=== PATIENT | male | born 1940 | race Caucasian/White ===

== ENCOUNTER 2024-09-10 07:25 | Inpatient (IN) | payer MEDICARE ==
[~2024-09-10] VITALS: Ht 170.2 cm; Wt 72.6 kg
[2024-09-10] MEDS ORDERED: Mounjaro SQ (07:45)
[2024-09-10] MEDS ORDERED: HYDR50TA62 PO (07:45)
[2024-09-10] MEDS ORDERED: MORPHINE SULFATE 2 MG/1 ML DISP.SYRIN ONE (08:02)
[2024-09-10] MEDS ORDERED: METOCLOPRAMIDE HCL 10 MG/2 ML VIAL ONE (08:02)
[2024-09-10 08:07] LABS: PLATELET COUNT (AUTO) 422 K/uL (152-348); RED BLOOD CELL COUNT(AUTO) 3.58 MIL/uL (4.06-5.63); RED CELL DISTRIBUTION WIDTH 14.0 % (12.1-16.2); WHITE BLOOD COUNT (AUTO) 9.6 K/uL (3.6-10.2)
[2024-09-10] MEDS: METOCLOPRAMIDE HCL 10 MG/2 ML VIAL IV ONE (08:08)
[2024-09-10] MEDS: IV NS 1000 ML 1,000 ML IV ONE ×2 (08:08→09:52)
[2024-09-10] MEDS: MORPHINE SULFATE 2 MG/1 ML DISP.SYRIN IV ONE (08:09)
[2024-09-10 08:15] LABS: CREATININE 0.7 mg/dL (0.6-1.3); SODIUM SERUM 140 mmol/L (136-145); UREA NITROGEN, BLOOD 20 mg/dL (7-18)
[2024-09-10 08:26] LABS: ASPARTATE AMINOTRANSFERASE 81 U/L (15-37); TOTAL PROTEIN, SERUM 7.9 g/dL (6.4-8.2)
[2024-09-10] MEDS: PIPERACILLIN SODIUM/TAZOBACTAM 3.375 G in IV DEXTROSE 5% 50 ML IV ONE (08:35)
[2024-09-10] MEDS ORDERED: IV NORMAL SALINE 250 ML IV ONE (08:45)
[2024-09-10] MEDS ORDERED: SWABABLE VALVE TRANSFER SET EA MC ONE (08:45)
[2024-09-10] MEDS ORDERED: IOHEXOL 300MG/ML 100 ML INFUS..BTL ONE (08:45)
[2024-09-10 08:46] LABS: LACTIC ACID 2.8 mmol/L (0.4-2.0)
[2024-09-10] MEDS ORDERED: PIPERACILLIN/TAZOBACTAM/D5W 50 ML IV ONE ×2 (08:52→14:08)
[2024-09-10 09:45] LABS: *BILIRUBIN,URIN NEGATIVE (NEGATIVE); *BLOOD, URINE 2+ (NEGATIVE); *CLARITY,URINE CLEAR (CLEAR); *COLOR,URINE YELLOW (YELLOW); *KETONES,URINE TRACE (NEGATIVE); *PROTEIN,URINE 1+ (NEGATIVE); *UROBILINOGEN,URINE 0.2 E.U./dl (NORMAL); LEUKOCYTE ESTERASE ,URINE NEGATIVE (NEGATIVE); NITRITE, URINE NEGATIVE (NEGATIVE); UGLUCOSE NEGATIVE (NEGATIVE)
[2024-09-10] MEDS: IV NORMAL SALINE 1000 ML BAG IV ONE (09:47)
[2024-09-10] MEDS ORDERED: MORPHINE SULFATE 4 MG/1 ML DISP.SYRIN ONE (09:55)
[2024-09-10] MEDS ORDERED: HYDR500C2 PO (10:12)
[2024-09-10] MEDS: MORPHINE SULFATE 4 MG/1 ML DISP.SYRIN IV ONE (10:29)
[2024-09-10] MEDS ORDERED: REMEDY ESSENTIAL ZINC PASTE 113 GM TP PRN (11:15)
[2024-09-10] MEDS ORDERED: MORPHINE SULFATE 4 MG/1 ML DISP.SYRIN IV PRN (11:15)
[2024-09-10] MEDS ORDERED: ONDANSETRON 4 MG/2 ML VIAL IV PRN ×2 (11:15)
[2024-09-10] MEDS ORDERED: TEMAZEPAM 15 MG CAPSULE PO PRN (11:15)
[2024-09-10] MEDS ORDERED: ROSU40TA PO (12:00)
[2024-09-10] MEDS ORDERED: EZET10TA15 PO (12:00)
[2024-09-10] MEDS ORDERED: PIPERACILLIN SODIUM/TAZOBACTAM 3.375 G in IV DEXTROSE 5% 50 ML IV SCH (12:00)
[2024-09-10] MEDS ORDERED: SERT25TA PO (12:00)
[2024-09-10] MEDS: PIPERACILLIN SODIUM/TAZOBACTAM 3.375 G in IV DEXTROSE 5% 100 ML IV SCH (14:23)
[2024-09-10 19:15] VITALS: BP 103/53; TEMP 99.2; O2SAT 97
[2024-09-11 05:34] VITALS: BP 111/60; TEMP 97.8; O2SAT 96
[2024-09-11 06:39] LABS: PLATELET COUNT (AUTO) 362 K/uL (152-348); RED BLOOD CELL COUNT(AUTO) 3.05 MIL/uL (4.06-5.63); RED CELL DISTRIBUTION WIDTH 14.1 % (12.1-16.2); WHITE BLOOD COUNT (AUTO) 8.9 K/uL (3.6-10.2)
[2024-09-11 06:59] LABS: ASPARTATE AMINOTRANSFERASE 30 U/L (15-37); CREATININE 0.5 mg/dL (0.6-1.3); SODIUM SERUM 140 mmol/L (136-145); TOTAL PROTEIN, SERUM 5.7 g/dL (6.4-8.2); UREA NITROGEN, BLOOD 17 mg/dL (7-18)
[2024-09-11] MEDS: HYDROXYUREA 500 MG CAPSULE PO SCH (08:10)
[2024-09-11] MEDS: ENOXAPARIN SODIUM 40 MG/0.4 ML DISP.SYRIN SQ SCH (08:11)
[2024-09-11] MEDS: PANTOPRAZOLE SODIUM 40 MG VIAL IV SCH (08:23)
[2024-09-11 08:34] LABS: ERYTHROCYTE SEDIMENTATION RATE 24 MM/HR (0-15)
[2024-09-11] MEDS ORDERED: SULFAMETH/TRIMETH 800/160 MG TABLET PO SCH (09:30)
[2024-09-11] MEDS: DOXYCYCLINE HYCLATE 100 MG TABLET PO SCH (09:51)
[2024-09-11 11:07] VITALS: BP 116/60; TEMP 97.7; O2SAT 100
[2024-09-11 16:04] VITALS: BP 120/62; TEMP 97.4; O2SAT 93
[2024-09-11 19:15] VITALS: BP 145/70; TEMP 97.6; O2SAT 99
[2024-09-12 05:40] VITALS: BP 123/57; TEMP 98; O2SAT 99
[2024-09-12 07:20] LABS: PLATELET COUNT (AUTO) 344 K/uL (152-348); RED BLOOD CELL COUNT(AUTO) 3.00 MIL/uL (4.06-5.63); RED CELL DISTRIBUTION WIDTH 14.1 % (12.1-16.2); WHITE BLOOD COUNT (AUTO) 5.7 K/uL (3.6-10.2)
[2024-09-12 07:24] LABS: CREATININE 0.6 mg/dL (0.6-1.3); SODIUM SERUM 138 mmol/L (136-145); UREA NITROGEN, BLOOD 13 mg/dL (7-18)
[2024-09-12 12:00] VITALS: BP 115/63; TEMP 97.6; O2SAT 97
[2024-09-12 16:04] VITALS: BP 120/62; TEMP 98.6; O2SAT 100
[2024-09-12 19:00] VITALS: BP 101/57; TEMP 97.6; O2SAT 98
[2024-09-13 04:00] VITALS: BP 121/68; TEMP 97.6; O2SAT 99
[2024-09-13] MEDS: PANTOPRAZOLE SODIUM 40 MG TABLET.DR PO SCH (06:28)
[2024-09-13 07:43] VITALS: BP 123/65; TEMP 97.5; O2SAT 98
== END 2024-09-13 11:55 | disposition home or self-care (01) | DRG 392 ==
LOC: ER 07:25 → TELE3 11:15 → MEDSURG3 16:20
PROVIDERS: ADMIT Registered Nurse Psychiatric/Mental Health; ATTEND Registered Nurse Psychiatric/Mental Health
DX: K57.32 Diverticulitis of large intestine without perforation or abscess without bleeding (principal); E87.20 Acidosis, unspecified; E44.0 Moderate protein-calorie malnutrition; L03.115 Cellulitis of right lower limb; R74.01 Elevation of levels of liver transaminase levels; T45.1X5A Adverse effect of antineoplastic and immunosuppressive drugs, initial encounter; Y92.89 Other specified places as the place of occurrence of the external cause; E83.52 Hypercalcemia; D75.839 Thrombocytosis, unspecified; E78.5 Hyperlipidemia, unspecified; F17.210 Nicotine dependence, cigarettes, uncomplicated; Z85.46 Personal history of malignant neoplasm of prostate; G47.33 Obstructive sleep apnea (adult) (pediatric); D41.4 Neoplasm of uncertain behavior of bladder; E86.0 Dehydration; Z96.653 Presence of artificial knee joint, bilateral; Z96.641 Presence of right artificial hip joint; Z88.0 Allergy status to penicillin; Z85.47 Personal history of malignant neoplasm of testis; Z53.20 Procedure and treatment not carried out because of patient's decision for unspecified reasons; E88.09 Other disorders of plasma-protein metabolism, not elsewhere classified; D53.9 Nutritional anemia, unspecified; D18.09 Hemangioma of other sites; R79.89 Other specified abnormal findings of blood chemistry; I10 Essential (primary) hypertension; Z98.1 Arthrodesis status
CPT/HCPCS: 36415; 83605; 83690; 83735; 84100; 85025; 85651; 87040; 87086; A4606; A4663; A6209; G0378; J1650; J2270; J2470; J2543; J2765; J7040; Q9967